=== PATIENT | male | born 1960 | race Caucasian/White ===

== ENCOUNTER 2023-03-14 09:22 | Day surgery (SDC) | payer SELFPAY, OTHER ==
[2023-03-14 10:09] VITALS: BP 118/77; PULSE 59; RESP 18; TEMP 36.7; O2SAT 98; BMI 28.0
[2023-03-14] MEDS: Lactated Ringers 1,000 ML 15 ML IV (10:22)
--- NOTE | 2023-03-14 10:57 | HP.PCM_ITS ---
History and Physical Date of Admission: 03/14/23 Intake Vital Signs 02/08/2315:14 Height 5 ft 6 in Weight: 182 lb 4 oz BMI 29.4 BP 107/73 Blood Pressure Location Rt brachial Position Sitting Respiration 18 Pulse 72 Pulse Source Monitor Temp 97.4 F L Temp Source Temporal Pulse Oximetry (%) 100 Oxygen Delivery Method room air Intake Visit Reasons: INGUINAL HERNIA Chief Complaint: Right inguinal hernia Poolroom/Poolhall Manager Required: No Accompanied by: Allergies No Known Allergies Allergy (Unverified 02/08/23 15:15) Medications NK 02/08/23 [History Confirmed 02/08/23] [facility] Medical History (Updated 02/08/23 @ 15:[address] Flaco Headley MD) Inguinal hernia of right side without obstruction or gangrene Surgical History (Updated 02/08/23 @ 15:13 by Marissa Harris) History of hand surgery History of repair of laceration History of shoulder surgery Social History (Updated 02/08/23 @ 15:14 by Marissa Harris) Smoking Status: Never smoker alcohol intake: never substance use type: does not use HPI HPI HPI: Patient is a 62-year-old male here for right inguinal hernia. He is asked been experiencing bulging for the last 3 to 4 months. He does not have any symptoms on the opposite side. He reports the right inguinal hernia does cause him pain with lifting. He denies nausea or vomiting. ROS General General: No weight change, appetite, fatigue, colon cancer, breast cancer or w eakness HEENT HEENT: No difficulty swallowing, eye injury, eye surgery, swollen glands or hoarseness Endo Endocrine: No thyroid disease, diabetes mellitus, thyroid cancer, Hair loss, heat intolerance or cold intolerance Skin Skin: No rash or changing moles Breast Breast: No left breast lump, right breast lump, nipple discharge, breast pain, abnormal mammogram, abnormal US or breast enlargement Musc Musculoskeletal: No back problems, arthritis, rheumatoid arthritis, gout or joint pain Cardio Cardiovascular: No murmur, pacemaker, heart disease, atrial fibrillation, high blood pressure, heart attack, heart stent, palpitations, shortness of breat with exertion or chest pain Psych Psychiatric: No depression, anxiety or hearing voices Resp Respiratory: No shortness of breath, No sleep apnea, No cough, No COPD, No asthma, No emphysema and No wheezing Gastro Gastrointestinal: No abdominal pain, No nausea or vomiting, No diarrhea, No constipation, No blood in stool, No acid reflux, No hemorrhoids, No ulcers, No gallbladder problem and No black,tarry stools Jarvis Hematologic: No blood thinners, No blood disorders, No bleeding, No anemia and No blood clots Neuro Neurologic: No system reviewed and no additional complaints, except as documented, No as per HPI, No abnormal gait, No abnormal hearing, No abnormal movements, No abnormal speech, No behavioral changes, No burning sensations, No confusion, No convulsions, No disequilibrium, No dizziness, No localized weakness, No frequent falls, No headache(s), No lack of coordination, No loss of vision, No memory loss, No numbness, No other visual disturbances, No radicular pain, No restless legs, No sensory deficit, No syncope, No tingling, No tremor(s), No weakness and No other Exam Const General: cooperative Orientation: alert and oriented x3 HENMT Head: normal to inspection Neck Neck: normal visual inspection and full ROM Chest Chest palpation & inspection: normal inspection of the chest Resp Effort & Inspection: normal respiratory effort Auscultation: clear to auscultation bilaterally Cardio Rate: regular rate Rhythm: regular rhythm GI Inspection: non-distended Palpation: soft, hernia indirect inguinal on the right and nontender Skin General: no rashes or lesions noted Neuro General: patient alert and patient oriented x3 Extrem General: full ROM Psych Appearance: grossly normal Mental Status: mental status grossly normal Assessment and Plan Assessment and Plan (1) Right inguinal hernia: Status: Acute Plan: Patient has a reducible right inguinal hernia. I discussed robotic assisted laparoscopic inguinal hernia repair with mesh. I discussed the risks including the limited to bleeding, infection, injury other organs such as the bowel, bladder, ureter, testicle or blood supply to the testicle. Patient understands the risks and is when to proceed. Flaco Headley MD Pager: [facility] [address] [place] [address], [address] [place] [address] Office: I have examined the patient and the H&P has been reviewed. There are no clinical changes since date of exam.
[2023-03-14] MEDS: Cefazolin 2 GM in 0.9% Normal Saline (100mL Bag) 100 ML IV (11:30)
[2023-03-14] MEDS: Bupivacaine Mpf 0.5% 30 ML VIAL (12:17)
[2023-03-14 12:32] VITALS: BP 118/77; BP 130/91; PULSE 64; RESP 16; TEMP 36.8; O2SAT 100
[2023-03-14 12:45] VITALS: BP 118/77; BP 118/83; PULSE 57; RESP 16; O2SAT 99
--- NOTE | 2023-03-14 12:48 | PCM.OPRPT ---
Report of Operation Date of Procedure: 03/14/23 Pre-Operative Diagnosis: Right inguinal hernia Post-Operative Diagnosis: Right inguinal hernia Surgery/Procedure Performed:: Robotic assisted laparoscopic right inguinal hernia repair with mesh Type of Anesthesia: General/Regional Estimated Blood Loss (mL): 10 Description of Procedure: Patient was brought back to the operating room and general anesthesia was induced. The abdomen was prepped and draped in usual sterile fashion. A small incision was made superior to the umbilicus and the fascia was elevated and a Veress needle was placed into the abdomen. A drop test was performed. The abdomen was insufflated to 15 mmHg and the needle was removed. A port was placed into the abdomen and the camera was then placed into the abdomen. There were no injuries from entry. The patient was placed in steep Trendelenburg position. Under direct visualization an 8 mm port was placed in the right lateral abdominal sidewall and the left lateral abdominal sidewall and the robot was docked. The peritoneum in the right lower quadrant was incised sharply using electrocautery scissors. Dissection was carried inferiorly until the hernia sac was encountered. There was a lipoma that was reduced and the hernia sac was reduced. Next ProGrip mesh was unfolded in the right lower quadrant and placed over the inguinal hernia. This had good overlap over the hernia in all directions. The peritoneum was then reapproximated completely covering the mesh. This was done with a running 3 oh V-Loc suture. The mesh was completely covered at the end of the case and the robot was undocked and the air was allowed to desufflate from the abdomen. The ports were removed. The scrotum was checked and contain both testicles. The skin incisions were injected with local anesthetic and closed with interrupted 4-0 Monocryl sutures and Steri-Strips and bandages. Patient was taken to PACU in stable condition and tolerated the procedure well. Grafts/Implants Used: ProGrip mesh in the right groin Admit VTE Documentation VTE Mechan Device Prophylaxis: SCD's
--- NOTE | 2023-03-14 12:55 | EX.PCM.DISCH ---
Discharge Instructions Diet Discharge Diet: Light diet - advance as tolerated Activity Discharge Activity: May Not Drive (for 2-3 days or while taking narcotic pain meds.) and May Shower (with the bandage in place 1-2 days after surgery.) Lifting Restrictions: 20 pounds for 2 weeks Additional Activity Instructions:: Climbing stairs is fine, walking is encouraged. Sitting in bed may be uncomfortable. Sitting up using your lateral muscles (sitting up sideways) is usually more comfortable. Do not drive, work heavy equipment or sign legal documents for 24 hours. If your hernia repair was an inguinal repair, you may have scrotal swelling, an ice pack and/or athletic support can provide more comfort. Pain medications may cause nausea, you should typically eat light foods as you take your pain medications. Pain medications may also cause constipation. If you have difficulty with this, discuss with your doctor. Dressing / Incision Call your doctor if your incision/area has: Continuous Slow Oozing, Sudden Increased Bleeding, Increased Pain/ Swelling, Increased Redness and Foul Smelling Discharge Call your doctor if you observe: Fever of 101 or Higher Suture Line Care: Avoid Pulling/Pushing and Avoid Pinching/Bending Remove Dressing in: 2 days (Remove clear bandages in 2 days, remove Steri-Strips in 7 to 10 days.) Follow Up Care Please Follow Up With: Flaco Headley MD When: Please call to schedule 2 week follow up appointment. [phone] Test Results: Test results from this visit will be discussed in further detail at your follow-up appointment, if applicable. Discharge Plan Admission Attending Provider: Flaco Headley Primary Care Provider: Branden Méndez Discharge Orders/Prescriptions Prescriptions: New oxycodone 5 mg tablet 5 - 10 mg PO Q6H PRN (Reason: pain) 5 Days Qty: 10 0RF No Action NK Other Ambulatory Orders: 12 Lead EKG (Routine) Timeframe: [id number] Location: None Selected Ordered By: Dr. Newton Flannery Referrals / Follow Up: Branden Méndez DO [Primary Care Provider] - Disposition Disposition (needs filled in before D/C Order can be placed): Home, Self Care
[2023-03-14 13:03] VITALS: BP 116/76; BP 118/77; PULSE 55; RESP 16; TEMP 36.7; O2SAT 99
[2023-03-14] MEDS: Acetaminophen 325 MG Tablet 650 MG PO (13:23)
[2023-03-14] MEDS: oxyCODONE 5 MG Tablet PO (14:14)
[2023-03-14 15:17] VITALS: BP 118/77
== END 2023-03-14 15:19 | disposition home or self-care (01) ==
LOC: SDC 09:25 → AC 09:26
PROVIDERS: PCP Family Medicine; Referring Provider Surgery; Visit Provider Surgery
PROC: (CPT 49650; principal; 2023-03-14 11:10)
DX: K40.90 Unilateral inguinal hernia, without obstruction or gangrene, not specified as recurrent (principal)
CPT/HCPCS: 49650; 00840; 93005; J7120; J2405